=== PATIENT | male | born 1955 | race Caucasian/White ===

== ENCOUNTER → 2018-01-18 14:29 | Outpatient (REF) | payer BC, SELFPAY ==
[2018-01-18 17:44] LABS: Basophils # 0.1 K/mm3 (0-0.2); Basophils % 0.7 % (0.1-2.0); Eosinophils # 0.2 K/mm3 (0.0-0.4); Eosinophils % 3.1 % (0.1-12.0); Hematocrit 41.3 % (42.0-52.0); Hemoglobin 13.8 g/dL (14.1-18.0); Lymphocytes # 1.8 K/mm3 (0.7-4.5); Lymphocytes % 28.4 K/mm3 (10-50); Mean Corpuscular HGB Conc 33.5 g/dL (31.8-35.4); Mean Corpuscular Hemoglobin 28.6 pg (27.0-31.2); Mean Corpuscular Volume 85.3 fl (80-94); Mean Platelet Volume 7.8 fl (7.4-10.4); Monocytes # 0.5 K/mm3 (0.1-1.0); Monocytes % 7.7 % (1.7-9.3); Neutrophils # 3.9 K/mm3 (1.8-7.8); Platelet Count 215 K/mm3 (142-424); Red Blood Count 4.84 M/mm3 (4.60-6.20); Red Cell Distribution Width 12.3 % (11.5-17.5); White Blood Count 6.4 K/mm3 (4.8-10.8)
[2018-01-18 18:26] LABS: Alanine Aminotransferase 39 U/L (12-78); Albumin Level 4.2 gm/dL (3.4-5.0); Albumin/Globulin Ratio 1.4 (1.1-1.8); Alkaline Phosphatase 106 U/L (46-116); Anion Gap 11.1 mEq/L (5-15); Aspartate Amino Transferase 18 U/L (15-37); Bilirubin,Total 0.5 mg/dL (0.2-1.0); Blood Urea Nitrogen 8 mg/dL (7-18); Carbon Dioxide 26 mmol/L (21.0-32.0); Chloride 98 mmol/L (98-107); Chol/HDL Ratio 5.2 (1-3.5); Cholesterol 217 mg/dL (140-200); Creatinine,Serum 0.73 mg/dL (0.70-1.30); Estimated Glomerular Filt Rate 110 ml/min (>60); Free T4 (Free Thyroxine) 1.46 ng/dl (0.76-1.46); GFR (African American) 133 ML/MIN (>60); Globulin 2.9 gm/dl (1.3-3.2); Glucose 97 mg/dL (74-106); HDL Cholesterol 42 mg/dL (27-67); LDL Cholesterol 117 mg/dL (0-130); Potassium 4.1 mmoL/L (3.5-5.1); Sodium 131 mmol/L (136-145); Thyroid Stimulating Hormone 0.38 uIU/ml (0.358-3.740); Total Protein,Serum 7.1 gm/dL (6.4-8.2); Triglycerides 289 mg/dL (30-200); VLDL Cholesterol 58 mg/dL (0-40)
[2018-01-20 17:09] LABS: Vitamin D 25 Hydroxy 29.9 ng/mL (30.0-100.0)
== END ==
LOC: LAB 14:29
PROVIDERS: Visit Provider Emergency Medicine
DX: I10 Essential (primary) hypertension (principal); Z79.899 Other long term (current) drug therapy
CPT/HCPCS: 80053; 80061; 82652; 84439; 84443; 85025

== ENCOUNTER → 2018-05-03 17:45 | Outpatient (CLI) | payer BC, SELFPAY ==
[2018-05-03 18:36] LABS: Basophils % 0.7 % (0.1-2.0); Eosinophils # 0.2 K/mm3 (0.0-0.4); Hematocrit 40.5 % (42.0-52.0); Hemoglobin 13.6 g/dL (14.1-18.0); Lymphocytes # 1.5 K/mm3 (0.7-4.5); Lymphocytes % 25.8 K/mm3 (10-50); Mean Corpuscular HGB Conc 33.6 g/dL (31.8-35.4); Mean Corpuscular Hemoglobin 28.4 pg (27.0-31.2); Mean Corpuscular Volume 84.6 fl (80-94); Mean Platelet Volume 7.5 fl (7.4-10.4); Monocytes # 0.6 K/mm3 (0.1-1.0); Monocytes % 10.2 % (1.7-9.3); Neutrophils # 3.4 K/mm3 (1.8-7.8); Neutrophils % 60.3 % (37.0-80.0); Platelet Count 257 K/mm3 (142-424); Red Blood Count 4.78 M/mm3 (4.60-6.20); Red Cell Distribution Width 12.2 % (11.5-17.5); White Blood Count 5.7 K/mm3 (4.8-10.8)
[2018-05-03 19:16] LABS: Alanine Aminotransferase 41 U/L (12-78); Albumin Level 4.1 gm/dL (3.4-5.0); Albumin/Globulin Ratio 1.4 (1.1-1.8); Alkaline Phosphatase 105 U/L (46-116); Anion Gap 12.6 mEq/L (5-15); Aspartate Amino Transferase 25 U/L (15-37); Bilirubin,Total 0.7 mg/dL (0.2-1.0); Blood Urea Nitrogen 7 mg/dL (7-18); Carbon Dioxide 27 mmol/L (21.0-32.0); Chloride 99 mmol/L (98-107); Chol/HDL Ratio 3.5 (1-3.5); Cholesterol 154 mg/dL (140-200); Creatinine,Serum 0.65 mg/dL (0.70-1.30); Estimated Glomerular Filt Rate 125 ml/min (>60); Free T4 (Free Thyroxine) 2.11 ng/dl (0.76-1.46); GFR (African American) 152 ML/MIN (>60); Globulin 2.9 gm/dl (1.3-3.2); Glucose 94 mg/dL (74-106); HDL Cholesterol 44 mg/dL (27-67); LDL Cholesterol 59 mg/dL (0-130); Potassium 4.6 mmoL/L (3.5-5.1); Sodium 134 mmol/L (136-145); Triglycerides 253 mg/dL (30-200); VLDL Cholesterol 51 mg/dL (0-40)
[2018-05-03 19:44] LABS: Thyroid Stimulating Hormone 0.01 uIU/ml (0.358-3.740)
[2018-05-05 14:14] LABS: PSA, Free 0.14 ng/mL; Prostate Specific Ag 0.7 ng/mL (0.0-4.0); Vitamin D 25 Hydroxy 35.7 ng/mL (30.0-100.0)
== END ==
PROVIDERS: Visit Provider Emergency Medicine
DX: I10 Essential (primary) hypertension (principal)
CPT/HCPCS: 80053; 80061; 82652; 84153; 84154; 84439; 84443; 85025

== ENCOUNTER → 2018-05-17 08:42 | Outpatient (CLI) | payer BC, SELFPAY ==
[2018-05-17 10:01] LABS: T4 (Thyroxine) 11.2 ug/dl (4.7-13.3); Thyroid Stimulating Hormone 0.01 uIU/ml (0.358-3.740); Triglycerides 173 mg/dL (30-200)
== END ==
PROVIDERS: Visit Provider Physician Assistant
DX: E78.5 Hyperlipidemia, unspecified (principal); R79.89 Other specified abnormal findings of blood chemistry
CPT/HCPCS: 36415; 84436; 84443; 84478

== ENCOUNTER → 2018-06-08 08:46 | Outpatient (CLI) | payer BC, SELFPAY ==
--- NOTE | 2018-06-08 08:55 | US_ITS ---
US thyroid HISTORY: ITS.REASON: thyromegaly ORDERING PHYSICIAN: Jose Elias Gao MD PATIENT AGE: 62 years Comparison: None FINDINGS: Right lobe: 4.5 x 1.8 x 2 cm. Homogeneous echogenicity. There is a 3 mm cyst in the mid polar region of the right lobe Left lobe: 4.2 x 1.8 x 1.8 cm. Homogeneous echogenicity 4 x 3 mm hypoechoic nodule upper pole Isthmus: 4 mm IMPRESSION: Mildly enlarged thyroid gland small bilateral hypoechoic lesions with low level of suspicion for malignancy.
[2018-06-08 10:11] LABS: Free T4 (Free Thyroxine) 1.08 ng/dl (0.76-1.46); Thyroid Stimulating Hormone 0.12 uIU/ml (0.358-3.740)
[2018-06-09 15:08] LABS: Parathyroid Hormone Intact 27 pg/mL (15-65); Triiodothyronine (T3) Free 3.2 pg/mL (2.0-4.4)
[2018-06-09 17:11] LABS: Calcium, Ionized 5.1 mg/dL (4.5-5.6)
== END ==
PROVIDERS: Visit Provider Otolaryngology
DX: E01.0 Iodine-deficiency related diffuse (endemic) goiter (principal); E05.90 Thyrotoxicosis, unspecified without thyrotoxic crisis or storm
CPT/HCPCS: 36415; 76536; 82330; 83970; 84439; 84443; 84481

== ENCOUNTER → 2018-12-04 12:45 | Outpatient (CLI) | payer BC, SELFPAY ==
--- NOTE | 2018-12-04 12:48 | US_ITS ---
US thyroid HISTORY: Follow-up thyroid nodules ITS.REASON: goiter ORDERING PHYSICIAN: Jose Elias Gao MD PATIENT AGE: 63 years Comparison: 06/08/2018 FINDINGS: The right lobe is 4.3 x 1.5 x 2 cm. There is a 2 mm hypoechoic nodule in the mid polar region laterally with some heterogeneous echogenicity noted. The left lobe is 4.4 x 1.7 x 1.8 cm greater 2 mm hypoechoic nodules present in the upper pole unchanged. Heterogeneous echogenicity. The osseous metastases is thickened at 5 mm. IMPRESSION: No change mild thyroid enlargement with small bilateral stable nodular lesions. No suspicious nodules evident
== END ==
PROVIDERS: PCP Emergency Medicine; Visit Provider Otolaryngology
DX: E01.0 Iodine-deficiency related diffuse (endemic) goiter (principal); E04.9 Nontoxic goiter, unspecified
CPT/HCPCS: 76536

== ENCOUNTER → 2019-02-26 15:50 | Outpatient (CLI) | payer BC, SELFPAY ==
[2019-02-26 16:59] LABS: Basophils # 0.1 K/mm3 (0-0.2); Basophils % 0.8 % (0.1-2.0); Eosinophils # 0.2 K/mm3 (0.0-0.4); Eosinophils % 3.1 % (0.1-12.0); Hematocrit 42.9 % (42.0-52.0); Hemoglobin 15.1 g/dL (14.1-18.0); Lymphocytes # 1.9 K/mm3 (0.7-4.5); Lymphocytes % 26.1 % (10-50); Mean Corpuscular HGB Conc 35.3 g/dL (31.8-35.4); Mean Corpuscular Hemoglobin 31.1 pg (27.0-31.2); Mean Platelet Volume 6.6 fl (7.4-10.4); Monocytes # 0.6 K/mm3 (0.1-1.0); Monocytes % 7.6 % (1.7-9.3); Neutrophils # 4.6 K/mm3 (1.8-7.8); Neutrophils % 62.4 % (37.0-80.0); Platelet Count 266 K/mm3 (142-424); Red Blood Count 4.87 M/mm3 (4.60-6.20); Red Cell Distribution Width 12.4 % (11.5-17.5); White Blood Count 7.4 K/mm3 (4.8-10.8)
[2019-02-26 18:28] LABS: Alanine Aminotransferase 37 U/L (12-78); Albumin Level 4.3 gm/dL (3.4-5.0); Albumin/Globulin Ratio 1.4 (1.1-1.8); Alkaline Phosphatase 96 U/L (46-116); Anion Gap 11.7 mEq/L (5-15); Aspartate Amino Transferase 18 U/L (15-37); Bilirubin,Total 0.5 mg/dL (0.2-1.0); Blood Urea Nitrogen 9 mg/dL (7-18); Calcium 9.2 mg/dL (8.5-10.1); Carbon Dioxide 30 mmol/L (21.0-32.0); Chloride 94 mmol/L (98-107); Chol/HDL Ratio 5.3 (1-3.5); Cholesterol 213 mg/dL (140-200); Creatinine,Serum 0.73 mg/dL (0.70-1.30); Estimated Glomerular Filt Rate 109 ml/min (>60); Free T4 (Free Thyroxine) 1.25 ng/dl (0.76-1.46); GFR (African American) 132 ML/MIN (>60); Glucose 95 mg/dL (74-106); HDL Cholesterol 40 mg/dL (27-67); LDL Cholesterol 122 mg/dL (0-130); Potassium 4.7 mmoL/L (3.5-5.1); Sodium 131 mmol/L (136-145); Thyroid Stimulating Hormone 1.91 uIU/ml (0.358-3.740); Total Protein,Serum 7.3 gm/dL (6.4-8.2); Triglycerides 254 mg/dL (30-200); VLDL Cholesterol 51 mg/dL (0-40)
[2019-02-28 09:48] LABS: Triiodothyronine (T3) Free 3.2 pg/mL (2.0-4.4); Vitamin D 25 Hydroxy 32.4 ng/mL (30.0-100.0)
[2019-02-28 15:13] LABS: Calcium, Ionized 5.2 mg/dL (4.5-5.6)
[2019-02-28 20:19] LABS: Parathyroid Hormone Intact 31 pg/mL (15-65)
== END ==
PROVIDERS: PCP Emergency Medicine; Visit Provider Nurse Practitioner Family
DX: R00.2 Palpitations (principal); R53.83 Other fatigue
CPT/HCPCS: 36415; 80053; 80061; 82330; 82652; 83970; 84439; 84443; 84481; 85025

== ENCOUNTER → 2019-03-02 12:26 | Outpatient (CLI) | payer BC, SELFPAY | PROVIDERS: PCP Emergency Medicine; Visit Provider Nurse Practitioner Family | DX: R00.2 Palpitations (principal); R00.0 Tachycardia, unspecified | CPT/HCPCS: 93225; 93226 ==

== ENCOUNTER → 2019-03-28 10:36 | Outpatient (CLI) | payer BC, SELFPAY ==
--- NOTE | 2019-03-28 10:37 | CA_ITS ---
APPROVED REPORT EXAM: Comprehensive 2D, Doppler, and color-flow Echocardiogram Lining Printer: Angelina Manuel RDCS Ht: 5 ft 10 in Wt: 198lbs BSA: 2.08 BP: 155/88 mmHg Indications: PALPS TACHYCARDIA H/O AF ,CMP EX SMOKER HTN HLP 2D Dimensions LVOT 1.90 cm (M/F) 1.5-2.5 M-Mode Dimensions RVDd 3.10 cm (0.9-2.6) LA Diam 3.30 cm (1.9-4.0) LVDd 6.00 cm (3.5-5.7) Ao Diam 3.10 cm (2.0-3.7) LVDs 4.30 cm (3.5-5.7) AV Cusp 1.90 cm (1.5-2.6) IVSd 0.80 cm (0.6-1.1) PWd 1.00 cm (0.6-1.1) EF (Teich) 53.80% FS 28.30% EDV (Teich) 180.00 mL ESV (Teich) 83.10 mL LV Diastology E/A Ratio 0.9 MED E' 5.85 (< 7 cm/sec) E'/MED E' Ratio 13.80 (>14) LAT E' 8.38 (<10 cm/sec) E/LAT E' Ratio 9.70 (>14) Mitral Valve MV E Max Andrew. 80.90 (40-130 cm/s) MV A Velocity 94.30 (40-130 cm/s) E/A Ratio 0.90 Tricuspid Valve TR P. Velocity 263.00 cm/s RAP Estimate 10.00 mmHg RVSP 38.00 mmHg Left Ventricle Left atrium is mildly enlarged, left ventricle is normal size, mild concentric left ventricular hypertrophy, visually estimated ejection fraction of 50% with no regional wall motion abnormality, grade 1 diastolic dysfunction seen without tissue Doppler evidence of raise left atrial pressure. Right Ventricle Right atrium and right ventricle mildly enlarged with normal contractility. Aortic Valve Aortic valve is thickened and calcified leaflet continue to display good mobility, there is no aortic stenosis or aortic insufficiency. Mitral Valve Mitral valve is grossly normal, there is no mitral stenosis, there is mild mitral regurgitation. Tricuspid Valve Tricuspid valve is grossly normal, there is mild tricuspid regurgitation. Pulmonic Valve Pulmonic valve is poorly visualized. Great Vessels Aortic root is normal size. Pericardium No significant pericardial effusion noted. Conclusion 1. Mildly enlarged left atrium, normal left ventricular size, mild concentric left ventricular hypertrophy, visually estimated ejection fraction 50% with no regional wall motion abnormality, grade 1 diastolic dysfunction seen without tissue Doppler evidence of raise left atrial pressure. 2. Mild mitral and tricuspid regurgitation 3. No significant pericardial effusion noted. Electronically signed by : Saeed Olea, 03/30/2019 13:51:31
== END ==
PROVIDERS: PCP Emergency Medicine; Visit Provider Nurse Practitioner Family
DX: R00.2 Palpitations (principal); R94.31 Abnormal electrocardiogram [ECG] [EKG]; E78.5 Hyperlipidemia, unspecified; I10 Essential (primary) hypertension; Z86.79 Personal history of other diseases of the circulatory system
CPT/HCPCS: 93306

== ENCOUNTER → 2019-06-12 13:00 | Outpatient (CLI) | payer BC, SELFPAY ==
--- NOTE | 2019-06-12 13:14 | US_ITS ---
PROCEDURE: US THYROID CLINICAL INDICATION: HX THYOID NEOPLASM Follow-up thyroid nodules COMPARISON: THY US thyroid from 12/04/2018 FINDINGS: Right lobe: The right lobe is 4.4 x 1.7 x 1.9 cm. 2 mm cyst is present in the mid aspect of the right lobe. There is some heterogeneous echogenicity. Left lobe: 4.4 x 1.5 x 1.9 cm. 2 mm cyst is present in the upper pole. Isthmus: Thickened at 6 mm Additional findings: IMPRESSION: Small bilateral thyroid cyst with mildly prominent thyroid gland otherwise negative thyroid ultrasound Dictated by: Artie Aguilar MD 06/12/2019 17:58 Electronically signed by rAtie Aguilar MD in [place] 06/12/2019 17:58
[2019-06-12 14:56] LABS: Free T4 (Free Thyroxine) 1.03 ng/dl (0.76-1.46); Thyroid Stimulating Hormone 1.88 uIU/ml (0.358-3.740)
[2019-06-13 15:32] LABS: Triiodothyronine (T3) Free 3.7 pg/mL (2.0-4.4)
[2019-06-13 16:45] LABS: Calcium, Ionized 5.1
== END ==
PROVIDERS: Visit Provider Otolaryngology
DX: E01.0 Iodine-deficiency related diffuse (endemic) goiter (principal)
CPT/HCPCS: 36415; 76536; 82330; 84439; 84443; 84481

== ENCOUNTER → 2020-05-05 09:11 | Outpatient (CLI) | payer BC, SELFPAY ==
[2020-05-05 09:46] LABS: Basophils % 0.7 % (0.1-2.0); Eosinophils # 0.3 K/mm3 (0.0-0.4); Eosinophils % 5.1 % (0.1-12.0); Hematocrit 43.6 % (42.0-52.0); Hemoglobin 15.1 g/dL (14.1-18.0); Lymphocytes # 1.6 K/mm3 (0.7-4.5); Lymphocytes % 30.1 % (10-50); Mean Corpuscular HGB Conc 34.6 g/dL (31.8-35.4); Mean Corpuscular Hemoglobin 31.1 pg (27.0-31.2); Mean Corpuscular Volume 89.9 fl (80-94); Mean Platelet Volume 7.3 fl (7.4-10.4); Monocytes # 0.5 K/mm3 (0.1-1.0); Monocytes % 9.4 % (1.7-9.3); Neutrophils # 2.9 K/mm3 (1.8-7.8); Neutrophils % 54.6 % (37.0-80.0); Platelet Count 187 K/mm3 (142-424); Red Blood Count 4.85 M/mm3 (4.60-6.20); Red Cell Distribution Width 13.1 % (11.5-17.5); White Blood Count 5.3 K/mm3 (4.8-10.8)
[2020-05-05 09:59] LABS: Chloride 94 mmol/L (98-107)
[2020-05-05 10:00] LABS: Potassium 4.7 mmoL/L (3.5-5.1); Sodium 129 mmol/L (136-145)
[2020-05-05 10:02] LABS: Alanine Aminotransferase 30 U/L (12-78); Albumin Level 4.4 g/dl (3.5-5.0); Albumin/Globulin Ratio 1.7 (1.1-1.8); Alkaline Phosphatase 88 U/L (38-126); Anion Gap 10.7 mEq/L (5-15); Aspartate Amino Transferase 31 U/L (17-59); Bilirubin,Total 0.6 mg/dl (0.2-1.3); Blood Urea Nitrogen 6 mg/dl (9-20); Carbon Dioxide 29 mmol/L (22.0-30.0); Estimated Glomerular Filt Rate 98 ml/min (>60); GFR (African American) 119 ML/MIN (>60); Globulin 2.6 g/dL (1.3-3.2)
[2020-05-05 10:03] LABS: Calcium 9.2 mg/dl (8.4-10.2); Glucose 109 mg/dl (74-100); HDL Cholesterol 50 mg/dl (40-60)
[2020-05-05 10:05] LABS: Chol/HDL Ratio 3.7 (1-3.5); Cholesterol 186 mg/dl (140-200); Triglycerides 315 mg/dl (30-150); VLDL Cholesterol 63 mg/dL (0-40)
[2020-05-05 10:14] LABS: Direct LDL Cholesterol 86.68 mg/dL (100-129)
[2020-05-05 10:20] LABS: Free T4 (Free Thyroxine) 1.25 ng/dl (0.78-2.19)
[2020-05-05 10:33] LABS: Thyroid Stimulating Hormone 1.83 uIU/mL (0.465-4.68)
[2020-05-05 11:24] LABS: 25-OH Vitamin D, Total 33.2 ng/mL (30-100)
== END ==
PROVIDERS: Visit Provider Emergency Medicine
DX: E66.3 Overweight (principal); E55.9 Vitamin D deficiency, unspecified
CPT/HCPCS: 36415; 80053; 80061; 82306; 84439; 84443; 85025

== ENCOUNTER → 2020-06-10 09:20 | Outpatient (CLI) | payer BC, SELFPAY ==
--- NOTE | 2020-06-10 09:32 | US_ITS ---
PROCEDURE: US THYROID CLINICAL INDICATION: tala nodules COMPARISON: US US THYROID from 06/12/2019 FINDINGS: Right lobe is 3.9 x 1.9 x 2.2 cm. Left lobe is 4.2 x 1.4 x 2.5 cm. In the lower pole on the right there is a 6 mm isoechoic nodule. Which is not readily apparent on the previous study. In the mid aspect of the left lobe there is a 3 mm hypoechoic nodule also not readily apparent on the previous exam IMPRESSION: Small bilateral benign-appearing thyroid nodules. Dictated by: Artie Aguilar MD 06/10/2020 18:09 Artie Aguilar MD in [place] 06/10/2020 18:09
[2020-06-10 10:46] LABS: Free T4 (Free Thyroxine) 1.31 ng/dl (0.78-2.19)
[2020-06-10 14:38] LABS: Thyroid Stimulating Hormone 1.72 uIU/mL (0.465-4.68)
== END ==
PROVIDERS: PCP Emergency Medicine; Visit Provider Otolaryngology
DX: E04.9 Nontoxic goiter, unspecified (principal)
CPT/HCPCS: 36415; 76536; 84439; 84443

== ENCOUNTER → 2021-04-22 08:42 | Outpatient (CLI) | payer BC, SELFPAY ==
[2021-04-22 09:00] LABS: Basophils # 0.1 K/mm3 (0-0.2); Basophils % 1.2 % (0.1-2.0); Eosinophils # 0.2 K/mm3 (0.0-0.4); Hematocrit 46.3 % (42.0-52.0); Hemoglobin 15.2 g/dL (14.1-18.0); Lymphocytes # 1.6 K/mm3 (0.7-4.5); Lymphocytes % 28.7 % (10-50); Mean Corpuscular HGB Conc 32.9 g/dL (31.8-35.4); Mean Corpuscular Hemoglobin 30.8 pg (27.0-31.2); Mean Corpuscular Volume 93.5 fl (80-94); Monocytes # 0.5 K/mm3 (0.1-1.0); Monocytes % 8.4 % (1.7-9.3); Neutrophils # 3.2 K/mm3 (1.8-7.8); Neutrophils % 58.7 % (37.0-80.0); Platelet Count 233 K/mm3 (142-424); Red Blood Count 4.95 M/mm3 (4.60-6.20); Red Cell Distribution Width 12.2 % (11.5-17.5); White Blood Count 5.5 K/mm3 (4.8-10.8)
[2021-04-22 10:12] LABS: Alanine Aminotransferase 50 U/L (12-78); Albumin Level 4.5 g/dl (3.5-5.0); Albumin/Globulin Ratio 1.6 (1.1-1.8); Alkaline Phosphatase 85 U/L (38-126); Anion Gap 12.5 mEq/L (5-15); Aspartate Amino Transferase 41 U/L (17-59); Blood Urea Nitrogen 6 mg/dl (9-20); Calcium 9.4 mg/dl (8.4-10.2); Carbon Dioxide 28 mmol/L (22.0-30.0); Chloride 93 mmol/L (98-107); Chol/HDL Ratio 2.7 (1-3.5); Cholesterol 200 mg/dl (140-200); Estimated Glomerular Filt Rate 136 ml/min (>60); GFR (African American) 165 ML/MIN (>60); Globulin 2.8 g/dL (1.3-3.2); Glucose 109 mg/dl (74-100); HDL Cholesterol 73 mg/dl (40-60); Potassium 4.5 mmoL/L (3.5-5.1); Sodium 129 mmol/L (136-145); Total Protein,Serum 7.3 g/dl (6.3-8.2); Triglycerides 224 mg/dl (30-150); VLDL Cholesterol 45 mg/dL (0-40)
[2021-04-22 10:23] LABS: Direct LDL Cholesterol 96.88 mg/dL (100-129)
[2021-04-22 10:44] LABS: Thyroid Stimulating Hormone 1.16 uIU/mL (0.465-4.68)
== END ==
PROVIDERS: Visit Provider Emergency Medicine
DX: E03.9 Hypothyroidism, unspecified (principal); R53.83 Other fatigue; K59.00 Constipation, unspecified; Z12.5 Encounter for screening for malignant neoplasm of prostate
CPT/HCPCS: 36415; 80053; 80061; 84439; 84443; 85025; G0103

== ENCOUNTER → 2022-04-20 08:57 | Outpatient (CLI) | payer BC, SELFPAY ==
[2022-04-20 09:55] LABS: Basophils # 0.1 K/mm3 (0-0.2); Basophils % 2.6 % (0.1-2.0); Eosinophils # 0.2 K/mm3 (0.0-0.4); Eosinophils % 3.2 % (0.1-12.0); Hematocrit 39.8 % (42.0-52.0); Hemoglobin 13.1 g/dL (14.1-18.0); Lymphocytes # 1.3 K/mm3 (0.7-4.5); Lymphocytes % 24.4 % (10-50); Mean Corpuscular HGB Conc 32.9 g/dL (31.8-35.4); Mean Corpuscular Hemoglobin 29.9 pg (27.0-31.2); Mean Corpuscular Volume 90.7 fl (80-94); Mean Platelet Volume 7.2 fl (7.4-10.4); Monocytes # 0.4 K/mm3 (0.1-1.0); Monocytes % 8.3 % (1.7-9.3); Neutrophils # 3.2 K/mm3 (1.8-7.8); Neutrophils % 61.5 % (37.0-80.0); Platelet Count 272 K/mm3 (142-424); Red Blood Count 4.39 M/mm3 (4.60-6.20); Red Cell Distribution Width 12.7 % (11.5-17.5); White Blood Count 5.2 K/mm3 (4.8-10.8)
[2022-04-20 10:16] LABS: Chloride 91 mmol/L (98-107); Sodium 128 mmol/L (136-145)
[2022-04-20 10:17] LABS: Potassium 4.9 mmoL/L (3.5-5.1)
[2022-04-20 10:19] LABS: Alanine Aminotransferase 28 U/L (12-78); Albumin Level 4.4 g/dl (3.5-5.0); Albumin/Globulin Ratio 1.9 (1.1-1.8); Alkaline Phosphatase 100 U/L (38-126); Anion Gap 13.9 mEq/L (5-15); Aspartate Amino Transferase 33 U/L (17-59); Bilirubin,Total 0.6 mg/dl (0.2-1.3); Blood Urea Nitrogen 6 mg/dl (9-20); Carbon Dioxide 28 mmol/L (22.0-30.0); Cholesterol 192 mg/dl (140-200); Estimated Glomerular Filt Rate 136 ml/min (>60); GFR (African American) 164 ML/MIN (>60); Globulin 2.3 g/dL (1.3-3.2); Total Protein,Serum 6.7 g/dl (6.3-8.2); Triglycerides 259 mg/dl (30-150); VLDL Cholesterol 52 mg/dL (0-40)
[2022-04-20 10:20] LABS: Calcium 8.9 mg/dl (8.4-10.2); Chol/HDL Ratio 3.3 (1-3.5); Glucose 107 mg/dl (74-100); HDL Cholesterol 58 mg/dl (40-60)
[2022-04-20 10:31] LABS: Direct LDL Cholesterol 84.37 mg/dL (100-129)
[2022-04-20 10:37] LABS: T4 (Thyroxine) 9.2 ug/dl (5.53-11.0)
[2022-04-20 10:51] LABS: Thyroid Stimulating Hormone 1.44 uIU/mL (0.465-4.68)
[2022-04-20 10:54] LABS: 25-OH Vitamin D, Total 27.1 ng/mL (30-100)
== END ==
PROVIDERS: PCP Emergency Medicine; Visit Provider Emergency Medicine
DX: E78.2 Mixed hyperlipidemia (principal); I10 Essential (primary) hypertension; R53.83 Other fatigue; E55.9 Vitamin D deficiency, unspecified
CPT/HCPCS: 36415; 80053; 80061; 82306; 84436; 84443; 85025

== ENCOUNTER → 2023-04-15 08:44 | Outpatient (CLI) | payer MEDICARE, SELFPAY ==
[2023-04-15 09:27] LABS: Basophils # 0.1 K/mm3 (0-0.2); Basophils % 0.8 % (0.1-2.0); Eosinophils # 0.2 K/mm3 (0.0-0.4); Eosinophils % 2.5 % (0.1-12.0); Hematocrit 42.5 % (42.0-52.0); Hemoglobin 15.2 g/dL (14.1-18.0); Lymphocytes # 1.5 K/mm3 (0.7-4.5); Lymphocytes % 24.4 % (10-50); Mean Corpuscular HGB Conc 35.8 g/dL (31.8-35.4); Mean Corpuscular Hemoglobin 31.9 pg (27.0-31.2); Mean Corpuscular Volume 89.1 fl (80-94); Mean Platelet Volume 7.2 fl (7.4-10.4); Monocytes # 0.5 K/mm3 (0.1-1.0); Monocytes % 8.4 % (1.7-9.3); Neutrophils # 3.9 K/mm3 (1.8-7.8); Neutrophils % 63.9 % (37.0-80.0); Platelet Count 216 K/mm3 (142-424); Red Blood Count 4.77 M/mm3 (4.60-6.20); Red Cell Distribution Width 12.4 % (11.5-17.5); White Blood Count 6.1 K/mm3 (4.8-10.8)
[2023-04-15 10:23] LABS: Alanine Aminotransferase 32 U/L (12-78); Albumin Level 4.9 g/dl (3.5-5.0); Albumin/Globulin Ratio 1.8 (1.1-1.8); Alkaline Phosphatase 97 U/L (38-126); Anion Gap 13.9 mEq/L (5-15); Aspartate Amino Transferase 36 U/L (17-59); Bilirubin,Total 1.2 mg/dl (0.2-1.3); Blood Urea Nitrogen 6 mg/dl (9-20); Calcium 9.4 mg/dl (8.4-10.2); Carbon Dioxide 28 mmol/L (22.0-30.0); Chloride 88 mmol/L (98-107); Chol/HDL Ratio 2.8 (1-3.5); Cholesterol 193 mg/dl (140-200); Estimated Glomerular Filt Rate 135 ml/min (>60); GFR (African American) 164 ML/MIN (>60); Globulin 2.7 g/dL (1.3-3.2); Glucose 111 mg/dl (74-100); HDL Cholesterol 68 mg/dl (40-60); Potassium 4.9 mmoL/L (3.5-5.1); Sodium 125 mmol/L (136-145); Total Protein,Serum 7.6 g/dl (6.3-8.2); Triglycerides 214 mg/dl (30-150); VLDL Cholesterol 43 mg/dL (0-40)
[2023-04-15 10:34] LABS: Direct LDL Cholesterol 90.49 mg/dL (100-129)
[2023-04-15 10:40] LABS: 25-OH Vitamin D, Total 83.3 ng/mL (30-100)
[2023-04-15 10:54] LABS: Prostate Specific Ag Screen 0.8 ng/ml (0.0-4.0); Thyroid Stimulating Hormone 1.61 uIU/mL (0.465-4.68)
== END ==
PROVIDERS: PCP Physician Assistant; Visit Provider Physician Assistant
DX: I10 Essential (primary) hypertension (principal); Z12.5 Encounter for screening for malignant neoplasm of prostate; E78.2 Mixed hyperlipidemia; Z79.899 Other long term (current) drug therapy; E66.9 Obesity, unspecified; Z68.27 Body mass index [BMI] 27.0-27.9, adult
CPT/HCPCS: 36415; 80053; 80061; 82306; 84443; 85025; G0103

== ENCOUNTER 2024-05-03 14:42 | Outpatient (CLI) | payer MEDICARE, BC, SELFPAY | END 2024-05-03 23:59 | disposition home or self-care (01) | LOC: RT 14:46 | PROVIDERS: PCP Physician Assistant; Visit Provider Internal Medicine | DX: R00.2 Palpitations (principal); I48.91 Unspecified atrial fibrillation; R00.0 Tachycardia, unspecified; I10 Essential (primary) hypertension; R94.31 Abnormal electrocardiogram [ECG] [EKG]; Z86.79 Personal history of other diseases of the circulatory system | CPT/HCPCS: 93270 ==

== ENCOUNTER 2024-05-17 11:11 | Outpatient (CLI) | payer MEDICARE, BC, SELFPAY ==
--- NOTE | 2024-05-17 | CA_ITS ---
APPROVED REPORT Exam: Pharmacologic Technologist: Chica [place] Ht: 5 ft 6 in Wt: 193 lbs BSA: 1.97 m2 HR: 67 bpm BP: 196/106 mmHg Rhythm: NSR, NS ST abns in leads 3, aVF Medical History Cardiac Risk Factors: HTN, Hyperlipidemia, Smoking Stress Test Details HR Resting HR: 67 bpm Max Heart Rate (APMHR): 154.943633 bpm Target HR (85% APMHR): 130.559796 bpm Recovery HR: 73 bpm BP Resting BP: 196.0/106.0 mmHg Recovery BP: 186.0/103.0 mmHg ECG Resting ECG: NSR NS ST abns in leads 3, aVF Stress ECG Conclusion Switched from nuria due to very high BP. Clonidine .1, lisinopril 10mg, toprol XL 150mg given at 1:45. During lexiscan pt experinced brief bilateral shoulder discomfort. No CP noted. Frequent PACs noted. No significant ST changes. Unremarkable lexiscan stress. HTN Electronically signed by : Mayela Zarate MD 05/21/2024 00:59:41
--- NOTE | 2024-05-17 11:17 | NM_ITS ---
APPROVED REPORT Exam: Nuclear Stress Test Indication: Palpitations, Afib, HTN, High cholesterol, Hx of OR Patient Location: Outpatient Stress Tech: Chica COHN Tech:Albina De GuzmanJENN RT(R)(N) Ht: 5 ft 10 in Wt: 190 lbs HR: 65 bpm BP: 196/106 mmHg BSA: 2.04 m2 TID: 1.25 BMI: 27.2 History: Palpitations, Afib, HTN, High cholesterol, Hx of OR Procedure: Patient received 0.4 mg of intravenous Lexiscan, resting heart rate 65 bpm, resting blood pressure 196/106 mmHg, with Lexiscan maximum heart rate achieved was 73 bpm which is % of the maximum predicted heart rate and blood pressure was 235/94 mmHg. With Lexiscan, patient denied any complaint of chest pain. Cardiac Stress and Resting SPECT Images: Cardiac Stress and Resting SPECT images were obtained using technetium 99m Myoview 30.6 mCi stress and 9.80 mCi at rest. Resting and stress imaging in supine and prone positions demonstrate a medium sized, moderate, partially reversible perfusion in the basal to mid inferior LV torrez. There is increase in transient ischemic dilatation ratio (TID 1.25), suggestive of possible multivessel disease or balanced ischemia. Gated imaging demonstrates low-normal global LV systolic function. There is mild hypokinesis of the basal inferior LV wall. LVEF is calculated at 50%. Conclusion: Medium sized, moderate, partially reversible perfusion in the basal to mid inferior LV torrez. Findings are suggestive of partial reversible ischemia. There is increase in transient ischemic dilatation ratio (TID 1.25), suggestive of possible multivessel disease or balanced ischemia. Gated imaging demonstrates low-normal global LV systolic function. There is mild hypokinesis of the basal inferior LV wall. LVEF is calculated at 50%. Of note, the patient's blood pressure at baseline was markedly elevated (BP 196/106) at the time of pharmacologic stress testing. BP control is recommended. Electronically signed by : Mayela Zarate MD 05/21/2024 01:01:40
[2024-05-17] MEDS: REGADENOSON 0.4MG/5ML SYRINGE 0.4 MG IV (14:24)
[2024-05-17] MEDS: ISOTOPE MYOVIEW (PER STUDY) 1 DOSE IV (14:24)
[2024-05-17] MEDS: SODIUM CHLORIDE 0.9% 10ML SYR (RAD ONLY) 10 ML IV ×2 (14:24)
== END 2024-05-17 23:59 | disposition home or self-care (01) ==
LOC: RAD 11:12
PROVIDERS: PCP Physician Assistant; Visit Provider Internal Medicine
DX: R94.31 Abnormal electrocardiogram [ECG] [EKG] (principal); I48.91 Unspecified atrial fibrillation
CPT/HCPCS: 78452; 93017; 93018; A9502; J2785

== ENCOUNTER 2024-05-22 11:07 | Outpatient (CLI) | payer MEDICARE, BC, SELFPAY ==
--- NOTE | 2024-05-22 11:12 | CA_ITS ---
APPROVED REPORT EXAM: Comprehensive 2D, Doppler, and color-flow Echocardiogram Regulation Supervisor: Aimee Whitney CRT Ht: 5 ft 10 in Wt: 193lbs BSA: 2.06 BP: 155/103 mmHg Indications: Atrial Fibrillation, Hyperlipidemia, Hypertension/HDD 2D Dimensions LA Volume 65.00 mL LA Volume Index 31.55 mL/m2 (M/F) 16-34 M-Mode Dimensions RVDd 2.52 cm (0.9-2.6) LA Diam 3.99 cm (1.9-4.0) LVDd 5.62 cm (3.5-5.7) LVDs 3.93 cm (3.5-5.7) IVSd 1.30 cm (0.6-1.1) PWd 0.79 cm (0.6-1.1) EF (Teich) 56.70% FS 30.10% EDV (Teich) 154.90 mL TAPSE 2.92 (<1.7) ESV (Teich) 67.10 mL LV Diastology E Decel Time 237 (160-240 msec) E/A Ratio 0.64 MED A' 9.50 cm/s LAT A' 13.20 cm/s Aortic Valve AO Peak GR. 8.50 mmHg Mitral Valve MV A Velocity 85.0 (40-130 cm/s) E/A Ratio 0.64 Pulmonary Valve PV Peak Velocity 140.0 (50-150 cm/s) Tricuspid Valve TR P. Velocity 283.00 cm/s RAP Estimate 10.00 mmHg RVSP 42.10 mmHg Left Ventricle The left ventricle is normal size. The left ventricular systolic function is normal. The left ventricular ejection fraction is within the normal range. There is increased LV wall thickness. There is normal LV segmental wall motion. Diastolic function is normal. LVEF is 55%. Right Ventricle The right ventricle is normal size. The right ventricular systolic function is normal. Atria The left atrium is mildly dilated. The right atrium is mildly dilated. There is no Doppler evidence of interatrial shunt. Aortic Valve The aortic valve opens well. There is no aortic valvular stenosis. No aortic regurgitation is present. Mitral Valve The mitral valve is normal in structure. No evidence of mitral valve stenosis. Trace mitral regurgitation. Tricuspid Valve The tricuspid valve leaflets are thin and pliable. Mild tricuspid regurgitation. RVSP 25-30 mmHg. Pulmonic Valve The pulmonary valve is normal in structure. Trace pulmonic regurgitation. Great Vessels The aortic root is normal in size. The ascending aorta is normal in size. IVC is normal in size and collapses >50% with inspiration. Pericardium There is no pericardial effusion. Other Information Study Quality: Fair Conclusion Normal biventricular systolic function. Mild biatrial dilation. Mild TR. Electronically signed by : Mayela Zarate MD 06/02/2024 23:48:38
== END 2024-05-22 23:59 | disposition home or self-care (01) ==
LOC: RT 11:08
PROVIDERS: PCP Physician Assistant; Visit Provider Internal Medicine
DX: I51.7 Cardiomegaly (principal); I36.1 Nonrheumatic tricuspid (valve) insufficiency; I48.91 Unspecified atrial fibrillation; R00.0 Tachycardia, unspecified; R94.31 Abnormal electrocardiogram [ECG] [EKG]; R00.2 Palpitations; Z86.79 Personal history of other diseases of the circulatory system
CPT/HCPCS: 93306